=== PATIENT | female | born 1985 | race Caucasian/White ===

== ENCOUNTER 2018-04-21 12:35 | Emergency (ER) | payer OTHER ==
[2018-04-21 13:47] LABS: Influenza A Molecular POSITIVE (Negative)
[2018-04-21] MEDS ORDERED: Ondansetron ODT TAB* 4 MG PO ONE (14:18)
[2018-04-21] MEDS ORDERED: NS 0.9% 1000 ML** 1,000 ML IV SCH (14:30)
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
--- NOTE | 2018-04-23 13:10 | UC ---
- Progress Note Progress Note: PATIENT CALLED REQUESTING AN ALBUTEROL INHALER. STATES SHE HAS A HISTORY OF ASTHMA AND HER CURRENT INHALER HAS RUN OUT. STATES SHE IS IMPROVING WITH RESPECT TO HER FLU SYMPTOMS. ALBUTEROL INHALER SENT TO [facility] IN [place]. Course/Dx - Diagnoses Provider Diagnoses: Influenza A Discharge - Sign-Out/Discharge Documenting (check all that apply): Post-Discharge Follow Up All imaging exams completed and their final reports reviewed: No Studies - Discharge Plan Condition: Stable Disposition: HOME Prescriptions: Albuterol HFA INHALER* [Ventolin HFA Inhaler*] 2 puff INH Q4H PRN #1 mdi PRN Reason: Shortness Of Breath Oseltamivir CAP* [Tamiflu CAP*] 75 mg PO BID #10 cap Patient Education Materials: Influenza (ED) Forms: *School Release Referrals: [facility] [Outside] - If Needed Additional Instructions: SWAB POSITIVE FOR INFLUENZA A. TAMIFLU TWICE DAILY FOR 5 DAYS. OTC MEDS NEEDED FOR FEVER, BODY ACHES. STAY WELL HYDRATED AND RESTED. SEEK FOLLOW-UP IF YOU ARE NOT IMPROVING EXPECTED. CALL THE NUMBER BELOW FOR ASSISTANCE IN ESTABLISHING WITH A PCP An additional resource available to assist in finding the appropriate physician for your health care needs is the [facility] (Anitha Mora). You may contact them by calling [phone]. - Billing Disposition and Condition Condition: STABLE Disposition: Home
== END 2018-04-21 15:50 | disposition home or self-care (01) ==
LOC: UCEAST 12:35
DX: J10.1 Influenza due to other identified influenza virus with other respiratory manifestations (principal); F17.210 Nicotine dependence, cigarettes, uncomplicated; Z91.040 Latex allergy status
CPT/HCPCS: 96360; 99202; A9270-GY; G0463